=== PATIENT | male | born 1985 | race Caucasian/White ===

== ENCOUNTER 2016-06-11 08:39 | Emergency (ER) | payer SELFPAY ==
--- NOTE | 2016-06-11 09:44 | ER Document Report ---
ED Seizure - General Mode of Arrival: Medic Information source: Patient - HPI Patient complains to provider of: First seizure Number of episodes: 1 Character of seizure: Complete loss/conscious <SHREE JOHNSTON - Last Filed: 06/11/16 09:39> <BRIDGER FONSECA - Last Filed: 06/11/16 13:37> - General Chief Complaint: Probable Seizure Stated Complaint: POSSIBLE SEIZURE Notes: Patient is a 30-year-old male presenting to the emergency department via EMS after his girlfriend witnessed him having a seizure in the restroom this morning. Patient's girlfriend states that he was flopping around on the ground , foaming at the mouth, and his mouth was turning blue. Patient has a history of IV drug abuse as well as methamphetamine abuse. Patient states that it has been "a while" since he has injected any drugs, but admits to smoking methamphetamine yesterday at 20:30 PM. Patient reports that his headache began approximately 30 minutes after he smoked the methamphetamine, and it was unrelenting until this morning when he had a seizure. Patient states the pain was mostly in his temples, and he could feel his vein pulsing. Patient states now he feels slightly disoriented and sore all over. (SHREE JOHNSTON) - Related Data Allergies/Adverse Reactions: No Known Allergies Allergy (Unverified 06/11/16 09:03) Past Medical History - General Information source: Patient - Social History Smoking Status: Current Some Day Smoker Frequency of alcohol use: Occasional Drug Abuse: Heroin, Marijuana, Methamphetamine, Prescription drugs, Other Occupation: industrial painter Family History: Reviewed & Not Pertinent Surgical Hx: Negative <SHREE JOHNSTON - Last Filed: 06/11/16 09:39> Review of Systems - Review of Systems Constitutional: No symptoms reported EENT: No symptoms reported Cardiovascular: No symptoms reported Respiratory: No symptoms reported Gastrointestinal: No symptoms reported Genitourinary: No symptoms reported Male Genitourinary: No symptoms reported Musculoskeletal: See HPI, Other - Body sore secondary to seizure Skin: No symptoms reported Hematologic/Lymphatic: No symptoms reported Neurological/Psychological: See HPI, Seizure, Headaches, Other - Disoriented -: Yes All other systems reviewed and negative <SHREE JOHNSTON - Last Filed: 06/11/16 09:39> Physical Exam - Vital signs Interpretation: Normal - General General appearance: Alert - HEENT Head: Normocephalic, Atraumatic, Tenderness - Bitemporal tenderness Eyes: Normal Pupils: Dilated - Reactive Mouth/Lips: Normal - No injury to tongue - Respiratory Respiratory status: No respiratory distress Chest status: Nontender Breath sounds: Normal Chest palpation: Normal - Cardiovascular Rhythm: Regular Heart sounds: Normal auscultation Murmur: No - Abdominal Inspection: Normal Bowel sounds: Normal Tenderness: Nontender - Back Back: Normal, Nontender - Extremities General lower extremity: Normal inspection, Nontender Elbow: Other - Tenderness over the antecubital fossa from multiple needle sticks to scar tissue by EMS. No evidence of acute infection. - Neurological Neuro grossly intact: Yes Cognition: Normal Orientation: AAOx4 Reva Coma Scale Eye Opening: Spontaneous [place]a Coma Scale Verbal: Oriented [place] Coma Scale Motor: Obeys Commands [place] Coma Scale Total: 15 Speech: Normal - Psychological Associated symptoms: Normal affect, Normal mood - Skin Skin Temperature: Warm Skin Moisture: Dry Skin Color: Normal <SHREE JOHNSTON - Last Filed: 06/11/16 09:39> Course - Laboratory Result Diagrams: 06/11/16 09:30 06/11/16 09:30 <BRIDGER FONSECA - Last Filed: 06/11/16 13:37> - Vital Signs Vital signs: Temp Pulse Resp BP Pulse Ox 97.6 F 82 15 129/73 H 100 06/11/16 08:50 06/11/16 08:50 06/11/16 11:00 06/11/16 09:02 06/11/16 11:00 - Laboratory Laboratory results interpreted by me: 06/11/16 06/11/16 06/11/16 09:30 09:30 09:54 WBC 17.7 H RBC 5.58 H Hgb 17.4 H Hct 51.7 H Seg Neutrophils % 88.7 H Lymphocytes % 6.4 L Absolute Neutrophils 15.7 H Glucose 153 H Total Bilirubin 1.8 H Creatine Kinase 221 H Urine Protein 100 H Urine Ketones TRACE H 06/11/16 12:20 WBC RBC Hgb Hct Seg Neutrophils % Lymphocytes % Absolute Neutrophils Glucose Total Bilirubin Creatine Kinase 322 H Urine Protein Urine Ketones Discharge <SHREE JOHNSTON - Last Filed: 06/11/16 09:39> <BRIDGER FONSECA - Last Filed: 06/11/16 13:37> - Discharge Clinical Impression: Seizure, Dehydration, Drug abuse Headache Qualifiers: Headache type: unspecified Headache chronicity pattern: acute headache Intractability: not intractable Qualified Code(s): R51 - Headache Condition: Stable Disposition: HOME, SELF-CARE Additional Instructions: Seizure: You have had a seizure. Seizure disorders (epilepsy) of one sort or another affect about one out of 50 people. The seizure occurs because of abnormal electrical activity in the brain. Seizures may be due to drugs and alcohol, strokes, brain injury, or infection. In the most common form of epilepsy, no cause can be found. You will require further evaluation to determine the cause of your seizure, and to determine whether anti-seizure medication is required. This follow-up testing is important, so please call us if you encounter problems with scheduling of tests or appointments. YOU SHOULD NOT DRIVE until released to do so by your physician. The law requires that seizures be reported to the class b truck driver's license bureau--a seizure while driving could be catastrophic. Call the doctor if seizures recur, or if you develop new symptoms such as fever, severe headache, stiff neck, confusion or increasing sleepiness, weakness or numbness, or visual problems. Dehydration: Dehydration can result from vomiting or diarrhea, fever, or decreased intake of fluids. If severe, hospitalization and intravenous fluids may be required. Most cases are treated at home with fluids by mouth. For the next 24 hours, drink lots of clear fluids. In mild cases, this can be soda pop or sports drinks. Try to get three liters (3 quarts) of fluid per day. If vomiting occurs, continue to drink the fluids frequently (every 15 to 20 minutes), but in small amounts (one or two ounces). Depending on the type of dehydration, the doctor may prescribe antinausea medicine or potassium replacements. Call the doctor or return for re-examination if you become progressively weak, vomit repeatedly, or have other new symptoms. DRINK PLENTY OF FLUIDS TODAY. REST. STOP USING DRUGS. TAKE TYLENOL FOR THE HEADACHE IF NEEDED. FOLLOW UP WITH A LOCAL MEDICAL DOCTOR IF NOT IMPROVING. FOLLOW UP WITH A LOCAL NEUROLOGIST IF YOU HAVE FURTHER SEIZURES. RETURN TO THE EMERGENCY ROOM IF ANY NEW OR WORSENING SYMPTOMS. Scribe Attestation: 06/11/16 13:37 I personally performed the services described in the documentation, reviewed and edited the documentation which was dictated to the scribe in my presence, and it accurately records my words and actions. (BRIDGER FONSECA) Scribe Documentation - Scribe Written by Scribe:: Shree Johnston 06/11/2016 0945 acting as scribe for :: Eben <SHREE JOHNSTON - Last Filed: 06/11/16 09:39>
[2016-06-11 09:54] LABS: ABSOLUTE BASOPHILS # (AUTO) 0.1 10^3/uL (0.0-0.2); ABSOLUTE LYMPHOCYTES (AUTO) 1.1 10^3/uL (0.5-4.7); ABSOLUTE MONOCYTES (AUTO) 0.8 10^3/uL (0.1-1.4); ABSOLUTE NEUT (AUTO) 15.7 10^3/uL (1.7-8.2); BASOPHILS % (AUTO) 0.4 % (0-2); HEMATOCRIT 51.7 % (37.9-51.0); HEMOGLOBIN 17.4 g/dL (13.5-17.0); HGB HCT DIFFERENCE 0.5; LYMPHOCYTES % (AUTO) 6.4 % (13-45); MEAN CORPUSCULAR HEMOGLOBIN 31.2 pg (27.0-33.4); MEAN CORPUSCULAR HGB CONC 33.8 g/dL (32.0-36.0); MEAN CORPUSCULAR VOLUME 93 fl (80-97); MONOCYTES % (AUTO) 4.5 % (3-13); RED BLOOD COUNT 5.58 10^6/uL (4.35-5.55); SEGMENTED NEUTROPHILS % (AUTO) 88.7 % (42-78); WHITE BLOOD COUNT 17.7 10^3/uL (4.0-10.5)
[2016-06-11 10:09] LABS: APPEARANCE,URINE SLIGHTLY-CLOUDY; BILIRUBIN,URINE NEGATIVE (NEGATIVE); GLUCOSE, URINE NEGATIVE (NEGATIVE); KETONES,URINE TRACE mg/dL (NEGATIVE); LEUKOCYTE ESTERASE,URINE NEGATIVE (NEGATIVE); NITRITE,URINE NEGATIVE (NEGATIVE); PROTEIN,URINE 100 mg/dL (NEGATIVE); URINE SPECIFIC GRAVITY 1.024; UROBILINOGEN,URINE NEGATIVE mg/dL (<2.0)
[2016-06-11 10:15] LABS: ALANINE AMINOTRANSFERASE 42 U/L (21-72); ALKALINE PHOSPHATASE 55 U/L (38-126); ANION GAP 18 (5-19); ASPARTATE AMINO TRANSFERASE 45 U/L (17-59); BILIRUBIN,DIRECT 0.1 mg/dL (0.0-0.4); BILIRUBIN,TOTAL 1.8 mg/dL (0.2-1.3); BLOOD UREA NITROGEN 14 mg/dL (7-20); CALCIUM 10.2 mg/dL (8.4-10.2); CARBON DIOXIDE 23 mmol/L (22-30); CHLORIDE 102 mmol/L (98-107); CREATINE KINASE 221 U/L (55-170); CREATININE RESULT 0.75 mg/dL (0.52-1.25); GLUCOSE 153 mg/dL (75-110); MAGNESIUM 2.2 mg/dL (1.6-2.3); POTASSIUM 4.5 mmol/L (3.6-5.0); SODIUM 142.9 mmol/L (137-145); TOTAL PROTEIN 8.1 g/dL (6.3-8.2)
[2016-06-11] MEDS ORDERED: NORMAL SALINE 1000 ML 1,000 ML IV ONE ×2 (10:17→11:51)
[2016-06-11 10:23] LABS: URINE BARBITURATES SCREEN NEGATIVE; URINE METHADONE SCREEN NEGATIVE; URINE OPIATES LOW NEGATIVE; URINE PHENCYCLIDINE SCREEN NEGATIVE
[2016-06-11 10:27] LABS: CREATINE KINASE MB 2.69 ng/mL (<4.55)
[2016-06-11 10:33] LABS: TROPONIN I 0.048 ng/mL
[2016-06-11] MEDS ORDERED: KETOROLAC TROMETHAMINE INJ/PF 30 MG/1 ML SDV IV ONE (10:59)
[2016-06-11] MEDS ORDERED: DIPHENHYDRAMINE HCL 50 MG/ML VIAL IV ONE (10:59)
[2016-06-11] MEDS ORDERED: METOCLOPRAMIDE HCL INJ/PF 10 MG/2 ML SDV IV ONE (10:59)
[2016-06-11 13:42] VITALS: BP 123/70
== END 2016-06-11 13:46 | disposition home or self-care (01) ==
LOC: ER 08:39
DX: R56.9 Unspecified convulsions (principal); F15.10 Other stimulant abuse, uncomplicated; F11.10 Opioid abuse, uncomplicated; F12.10 Cannabis abuse, uncomplicated; R51 Headache; R41.0 Disorientation, unspecified; F17.200 Nicotine dependence, unspecified, uncomplicated; E86.0 Dehydration
CPT/HCPCS: 99285; 96361; 96374; 96375; 36415; 87040; 82553; 82550; 83735; 85025; 80053; 81001; 84484; 80307; 70450; J1200; J1885; J2765; J7030

== ENCOUNTER 2016-10-27 19:28 | Emergency (ER) | payer OTHER ==
[2016-10-27 19:59] VITALS: BP 101/54
--- NOTE | 2016-10-27 20:09 | ER Document Report ---
ED Medical Screen (RME) - General Chief Complaint: Hand Injury Stated Complaint: FINGER INJURY Time Seen by Provider: 10/27/16 20:03 Notes: Patient reports 5 days ago he was climbing a ladder carrying a bucket of paint when it slipped and pulled on the left fourth finger. Since then the left fourth finger PIP joint has been and flexion and the joint was quite swollen. He reports the swelling is a little better now but he is unable to straighten the finger. I have greeted and performed a rapid initial assessment of this patient. A comprehensive ED assessment and evaluation of the patient, analysis of test results and completion of the medical decision making process will be conducted by additional ED providers. TRAVEL OUTSIDE OF THE [place] IN LAST 30 DAYS: No - Related Data Allergies/Adverse Reactions: No Known Allergies Allergy (Verified 10/27/16 19:56) Past Medical History - Social History Chew tobacco use (# tins/day): No Frequency of alcohol use: None Drug Abuse: None Renal/ Medical History: Denies: Hx Peritoneal Dialysis Surgical Hx: Negative - Immunizations Hx Diphtheria, Pertussis, Tetanus Vaccination: Yes Physical Exam - Vital signs Vitals: Temp Pulse Resp BP Pulse Ox 98.7 F 66 18 101/54 L 97 10/27/16 19:56 10/27/16 19:56 10/27/16 19:56 10/27/16 19:56 10/27/16 19:56 Course - Vital Signs Vital signs: Temp Pulse Resp BP Pulse Ox 98.7 F 66 18 101/54 L 97 10/27/16 19:56 10/27/16 19:56 10/27/16 19:56 10/27/16 19:56 10/27/16 19:56
--- NOTE | 2016-10-27 20:52 | RADIOLOGY REPORT (SQ) ---
EXAM DESCRIPTION: FINGER LEFT COMPLETED DATE/TIME: 10/27/2016 8:21 pm REASON FOR STUDY: 4th finger PIP joint injury 5 days ago COMPARISON: None. NUMBER OF VIEWS: Three views. TECHNIQUE: AP, lateral, and oblique images acquired of the left fourth finger. LIMITATIONS: None. FINDINGS: MINERALIZATION: Normal. BONES: 4th PIP is in 80 flexion. No acute fracture or dislocation. No worrisome bone lesions. SOFT TISSUES: Moderate soft tissue swelling. No foreign body. OTHER: No other significant finding. IMPRESSION: No fracture. COMMENT: SITE OF TRAUMA/COMPLAINT MARKED/STAMP COMPLETED: Yes TECHNICAL DOCUMENTATION: JOB ID: [id number] [employer]- All Rights Reserved
--- NOTE | 2016-10-27 21:02 | ER Document Report ---
ED Hand/Wrist Injury - General Chief Complaint: Hand Injury Stated Complaint: FINGER INJURY Time Seen by Provider: 10/27/16 20:03 Information source: Patient Notes: Patient states 5 days ago he was carrying a paint bucket with his left hand when the pain pockets started to slip out of his hand and the handle caused his left fourth finger to "dislocate" laterally. Patient states he grabbed his finger and "pulled it straight". Patient states since that time his left ring finger has been flexed at the DIP joint and he is unable to fully extend it. He denies any numbness to the distal tip of the finger. He denies any discoloration. He states that the swelling has improved. TRAVEL OUTSIDE OF THE [place] IN LAST 30 DAYS: No - HPI Injury to: Ring finger Onset: Other - See above Where: Work Timing: Constant Quality of pain: Achy Severity: Mild Pain Level: 1 Context: Other - See above - Related Data Allergies/Adverse Reactions: No Known Allergies Allergy (Verified 10/27/16 19:56) Past Medical History - General Information source: Patient - Social History Smoking Status: Current Every Day Smoker Cigarette use (# per day): Yes Chew tobacco use (# tins/day): No Smoking Education Provided: No Frequency of alcohol use: None Drug Abuse: None Family History: Reviewed & Not Pertinent Patient has suicidal ideation: No Patient has homicidal ideation: No Renal/ Medical History: Denies: Hx Peritoneal Dialysis Surgical Hx: Negative - Immunizations Hx Diphtheria, Pertussis, Tetanus Vaccination: Yes Physical Exam - Vital signs Vitals: Temp Pulse Resp BP Pulse Ox 98.7 F 66 18 101/54 L 97 10/27/16 19:56 10/27/16 19:56 10/27/16 19:56 10/27/16 19:56 10/27/16 19:56 Notes: Reviewed vital signs and nursing note as charted by RN. CONSTITUTIONAL: Alert and oriented and responds appropriately to questions. Well -appearing; well-nourished EXT: Patient's left ring finger is flexed at the PIP joint with extension at the DIP joint. Sensation is intact to the distal tip with good capillary refill. Patient is unable to fully extend the ring finger. Course - Re-evaluation Re-evalutation: 10/27/16 20:49 Given the history and physical examination and x-ray of the finger has been performed. X-ray shows no obvious fractures. I am concerned about a ligamentous slip causing a possible boutonniere's deformity we will place the patient in full extension with splinting with follow up with orthopaedics. - Vital Signs Vital signs: Temp Pulse Resp BP Pulse Ox 98.7 F 66 18 101/54 L 97 10/27/16 19:56 10/27/16 19:56 10/27/16 19:56 10/27/16 19:56 10/27/16 19:56 Discharge - Discharge Clinical Impression: Dislocation, finger, interphalangeal joint Qualifiers: Encounter type: initial encounter Qualified Code(s): S63.279A - Dislocation of unspecified interphalangeal joint of unspecified finger, initial encounter Condition: Good Disposition: HOME, SELF-CARE Additional Instructions: You need to make sure that the finger stays splinted in full extension for 4-6 weeks. We need to follow-up with orthopedics as we have provided. Referrals: MARIE BORGES MD [ACTIVE STAFF] - Follow up as needed
[2016-10-27] MEDS ORDERED: LIDOCAINE 1% INJ (10 MG/ML) 10 ML MDV INJ ONE ×2 (21:19→21:24)
[2016-10-27] MEDS ORDERED: LIDOCAINE 1% INJ-PF (10 MG/ML) 30 ML SDV ONE (21:34)
== END 2016-10-27 22:10 | disposition left against medical advice (07) ==
LOC: ER 19:28
DX: S63.279A Dislocation of unspecified interphalangeal joint of unspecified finger, initial encounter (principal); X50.0XXA Overexertion from strenuous movement or load, initial encounter; Y99.0 Civilian activity done for income or pay; F17.210 Nicotine dependence, cigarettes, uncomplicated
CPT/HCPCS: 99283